=== PATIENT | female | born 1995 | race Caucasian/White ===

== ENCOUNTER 2021-02-03 11:30 | Outpatient (CLI) | payer OTHER, SELFPAY ==
[2021-02-03 11:45] VITALS: BP 121/93; PULSE 74; RESP 16; TEMP 36.5; O2SAT 100; BMI 19.5
[2021-02-03] MEDS: 0.9% Saline Lock 10 ML Syringe IV (11:51)
[2021-02-03 12:41] VITALS: BP 109/72; PULSE 78; RESP 16; TEMP 37.1; O2SAT 100
[2021-02-03 13:30] VITALS: BP 109/75; PULSE 69; RESP 16; TEMP 36.9; O2SAT 99
== END 2021-02-03 13:46 | disposition home or self-care (01) ==
LOC: MS3OUT 11:31 → MS3 11:31
PROVIDERS: Referring Provider Nurse Practitioner Adult Health; Visit Provider Nurse Practitioner Adult Health
DX: Z23 Encounter for immunization (principal); U07.1 COVID-19; D84.9 Immunodeficiency, unspecified
CPT/HCPCS: J7050; M0245; Q0245; A4216

== ENCOUNTER → 2023-11-29 | Outpatient (CLI) | payer OTHER, SELFPAY | END | disposition home or self-care (01) | PROVIDERS: PCP Family Medicine; Referring Provider Dermatology Pediatric Dermatology; Visit Provider Dermatology Pediatric Dermatology | DX: L82.1 Other seborrheic keratosis (principal); M32.10 Systemic lupus erythematosus, organ or system involvement unspecified; L57.8 Other skin changes due to chronic exposure to nonionizing radiation; D22.5 Melanocytic nevi of trunk; L81.4 Other melanin hyperpigmentation; Z71.89 Other specified counseling; L81.3 Cafe au lait spots; L81.0 Postinflammatory hyperpigmentation; S30.861A Insect bite (nonvenomous) of abdominal wall, initial encounter; B00.1 Herpesviral vesicular dermatitis; B02.9 Zoster without complications; X58.XXXA Exposure to other specified factors, initial encounter | CPT/HCPCS: 36415 ==